=== PATIENT | female | born 1955 | race Caucasian/White ===

== ENCOUNTER 2024-09-27 02:25 | Day surgery (SDC) | payer MEDICARE, SELFPAY ==
[2024-09-20 10:45] VITALS: BMI 24.7
[2024-09-27 09:08] VITALS: BP 144/68; PULSE 88; RESP 18; TEMP 36.4; O2SAT 98; BMI 24.7
[2024-09-27] MEDS: LACTATED RINGERS 1,000 ML 150 ML IV CONT (09:20)
[2024-09-27 09:25] LABS: Glucose Point of Care 136 mg/dl (65-105)
--- NOTE | 2024-09-27 09:50 | WPDANESEPPF ---
Anes - Initial Pre Proc Eval Procedure: Operation Date: 09/27/24 10:30 Proposed Procedures p Esophagogastroduodenoscopy - Vince James MD Date/Time: 09/27/24 09:50 Surgeon: Vince James MD Pre Op Diagnosis: GERD, foreign body sensation, dysphagia Patient Data Age: 69 Gender: F Height: 1.68 m Weight: 69.6 kg Last Vital Signs Temp 36.4 C 09/27/24 09:08 Pulse 88 09/27/24 09:08 Resp 18 09/27/24 09:08 BP 144/68 H 09/27/24 09:08 Pulse Ox 98 09/27/24 09:08 O2 Del Method Room Air 09/27/24 09:08 Allergies Allergy/AdvReac Type Severity Reaction Status Date / Time hydrocodone Allergy Severe NAUSEA Verified 09/27/24 09:06 VOMITING Sulfa (Sulfonamide Allergy Mild HIVES Verified 09/27/24 09:06 Antibiotics) Home Medications ?Medication ?Instructions ?Recorded ?Confirmed ?Type cetirizine 10 mg capsule (All Day 10 mg PO DAILY PRN allergy symptoms 05/04/22 09/27/24 History Allergy (cetirizine)) cholecalciferol (vitamin D3) 50 50 mcg PO DAILY 05/04/22 09/27/24 History mcg (2,000 unit) capsule cyanocobalamin (vitamin B-12) 1,000 mcg PO DAILY 05/04/22 09/27/24 History 1,000 mcg capsule calcium polycarbophil 625 mg 1,250 mg PO BID 05/10/22 09/27/24 History tablet (FiberCon) levothyroxine 75 mcg tablet 75 mcg PO DAILY #90 tabs 12/31/23 09/27/24 Rx metformin 500 mg tablet 1,000 mg (2 x 500 mg) PO BID #360 03/25/24 09/27/24 Rx tabs atorvastatin 20 mg tablet 20 mg PO DAILY #90 tabs 04/15/24 09/27/24 Rx lansoprazole 30 mg capsule,delayed 30 mg PO DAILY #30 caps 08/28/24 09/27/24 Rx release Laboratory Tests 09/27/24 09:17 POC Capillary Glucose 136 H mg/dl (65-105) Patient hx anesthesia problems: none Family hx anesthesia problems: none Results Review: All pre-operative results and documents have been reviewed as part of the pre-operative evaluation. [facility] Past Medical History Medical History (Updated 08/28/24 @ 14:17 by Argelia Venegas APRN) Thyroid disorder GERD (gastroesophageal reflux disease) Tonsillectomy planned Diabetes Allergies Surgical History Surgical History History of tonsillectomy Hx of appendectomy Hx of cholecystectomy Hx of elbow surgery Family History Family History Father Lung cancer Other Ovarian cancer Mother Alzheimer disease Social History Social History Smoking status: Former smoker Tobacco type: cigarettes Second hand tobacco smoke exposure: No Smoking end date: 10/09/84 Alcohol intake: current Alcohol use details: social Substance use: never Substance use type: does not use Living arrangements: with family Occupation/Education: retired Gender identity (if verbalized by the patient): Female Sexual Orientation (if Verbalized by the Patient): Straight or Heterosexual Spiritual care concerns: No Anes - Eval Final PreProcedure Day of Procedure 09/27/24 09:50 Patient weight: normal Heart: regular rate and rhythm Lungs: clear to auscultation and normal air movement Airway: Mallampati scale class II Neurological: alert and oriented Last oral intake: >/= 8 hours ASA classification: III Emergent: no Anesthetic plan: proceed Anesthesia type and monitoring: general GIVS and standard monitoring Results Review: All pre-operative results and documents have been reviewed as part of the pre-operative evaluation. Informed Consent: The patient's anesthetic plan and its attendant risks and benefits were discussed with the patient/family/POA. Questions were solicited and answers provided to the satisfaction of the patient/family/POA.
--- NOTE | 2024-09-27 10:06 | WPDHPUPDATE1 ---
History and Physical Update Update Date/Time: 09/27/24 10:06 History and Physical has been reviewed, including an updated exam of the patient. There are NO changes in the patient's condition. Risks, benefits, and alternatives have been discussed and questions answered. Patient agrees to proceed with procedure.
[2024-09-27 10:20] VITALS: BP 98/48; PULSE 72; RESP 20; O2SAT 100
[2024-09-27 10:30] VITALS: BP 108/55; PULSE 68; RESP 18; O2SAT 100
[2024-09-27 10:40] VITALS: BP 115/50; PULSE 64; RESP 18; O2SAT 100
[2024-09-27 10:50] VITALS: BP 125/56; PULSE 72; RESP 18; O2SAT 100
== END 2024-09-27 11:14 | disposition home or self-care (01) ==
PROVIDERS: PCP Family Medicine Adolescent Medicine; Referring Provider Nurse Practitioner; Visit Provider Internal Medicine Gastroenterology
PROC: 0DJ08ZZ Inspection of Upper Intestinal Tract, Via Natural or Artificial Opening Endoscopic (ICD-10-PCS; CPT 43235; principal; 2024-09-27 10:30)
DX: K21.9 Gastro-esophageal reflux disease without esophagitis (principal); K31.7 Polyp of stomach and duodenum; Z87.891 Personal history of nicotine dependence; Z79.84 Long term (current) use of oral hypoglycemic drugs
CPT/HCPCS: 43239; 82948; 88305; J2003; J2704; J7120

== ENCOUNTER 2025-02-28 01:08 | Day surgery (SDC) | payer MEDICARE, SELFPAY ==
[2025-02-21 12:49] VITALS: BMI 23.1
--- OUTSIDE RECORDS SUMMARY | 2025-02-28 01:10 | XMS_ITS | Clinical Summary ---
Author Organization [facility] Address [address] [place] [address] Care Team Providers Care Club Lounge Attendant Name Role Phone Jeosph Huston MD Primary Care Prov ider Allergies Active Allergy Reactions Criticality Noted Date Comments Oxycodone Nausea & Vomiting Low 09/16/2016 Sulfa (Sulfonamide Antibiotics) Rash Medium 06/2016 Medications xwbubsky-vfq-UL -lycopen-lutein (CENTRUM SILVER) 0.4-300-250 mg-mcg-mcg tablet Take by mouth Active metFORMIN (GLUCOPHAGE) 500 mg tablet Take 1 tablet (500 mg total) by mouth 2 (two) times a day Active etodolac (LODINE) 500 mg tablet as needed 9 Active cyanocobalamin (Vitamin B-12) 1,000 mcg tablet Take 1 tablet (1,000 mcg total) by mouth Active cetirizine (ZyrTEC) 10 mg tablet Take 1 tablet (10 mg total) by mouth Active atorvastatin (LIPITOR) 20 mg tablet 9 Active alendronate (FOSAMAX) 70 mg tablet 9 Active levothyroxine (SYNTHROID) 75 mcg tablet Take 1 tablet (75 mcg total) by mouth daily 0 Active ibuprofen (ADVIL,MOTRIN) 800 mg tablet TAKE 1 TABLET BY MOUTH THREE TIMES A DAY NEEDED FOR PAIN 2 Active meloxicam (MOBIC) 15 mg tablet 2 Active lansoprazole (PREVACID) 30 mg capsule Take by mouth daily 4 Active loperamide (IMODIUM) 0.133 mg/mL solution Take by mouth 4 (four) times a day as needed for diarrhea Active fluticasone propionate (FLONASE) 50 mcg/actuation nasal spray Administer 1 spray into each nostril daily Active famotidine (PEPCID) 20 mg tabletIndicatio ns:Laryngophary ngeal reflux (LPR) Take 1 tablet (20 mg total) by mouth nightly 30 tablet 1 5 Active Active Problems Problem Noted Date Diagnosed Date Headache around the eyes 09/18/2024 Globus sensation 09/18/2024 Chronic pansinusitis 09/18/2024 Post-nasal drainage 09/18/2024 Environmental allergies 09/16/2016 Gastroesophageal reflux disease without esophagi tis 09/16/2016 Hyperlipidemia 09/16/2016 Osteopenia 09/16/2016 Overview (09/02/2020): 09/24/2019: Did not take alendronate for more than 12 weeks in 2017. Started again in 09/2018. Will have her take it for 3 years (until 09/2021. )Next DEXA due 01/2021. 01/22/2019: T=-2.0 (different machine.), Continue alendronate for 1-2 more years. Will discuss at next appointment. 10/19/16: T=-2.4, FRAX +, 22% risk of major fx, low vit D, normal Calcium. Needs to start alendronate. Thinks she might have taken Fosamax for a few years in her late 40s (menopause at 43 yo.) Type 2 diabetes mellitus without complication Encounters Date Type Department Care Team Description 01/06/2025 Telephone [facility] Otolaryngology [address] [place] [address] Valarie Jarrett LPN Refill Famotidine 20mg at HS from Last 3 Months Immunizations Immunization Administration Dates Next Due Influenza, Quad, Adjuvantate d, Intramuscular 06/20/2021 Influenza, Quadrivalent, Hig h Dose, Preservative Free, Intrr 07/10/2020 Influenza, Trivalent, IM (MDV) 07/31/2013 Influenza, Unspecified 07/09/2018,07/09/2017,10/2015 Moderna SARS-CoV-2 Monovalen t Vaccination (12+ YRS) 08/30/2021,12/18/2020,11/20/2020 Pneumococcal Conjugate PCV 13 07/09/2018 Pneumococcal Polysaccharide PPV23 08/01/2019 Tdap 2016 ZOSTER Recombinant 01/11/2019,07/23/2018, 018 Surgical History Surgery Date Site/Laterality Comments TONSILLECTOMY APPENDECTOMY CHOLECYSTECTOMY ELBOW SURGERY Right Medical History Medical History Date Comments Osteoarthritis Diabetes mellitus (HCC) Hypercholesteremia GERD (gastroesophageal reflux disease) Osteopenia Headache Tuberculosis exposure when yo [place], tested pos in 1970's, took INH for 1yr Gastric reflux Migraines Thyroid disease Sinus drainage Globus sensation Family History Medical History Relation Name Comments Cancer Father Aneurysm Maternal Grandfather Arthritis Mother Dementia Mother Cancer Mother's Sister Relation Name Status Comments Father Maternal Grandfather Mother Mother's Sister Social History Tobacco Use Types Packs/Day Years Used Date Smoking Tobacco: Former Cigarettes Q uit: 1985 Smokeless Tobacco: Never Alcohol Use Standard Drinks/Week Comments Yes 0 (1 standard drink = 0.6 oz pur e alcohol) Comments Unknown Sex and Gender Information Value Date Recorded Sex Assigned at Not on file Legal Sex Female 8:25 PM HEALTH CLUB MANAGER Gender Identity Not on file Sexual Orientation Not on file Occupation Industry Job Start Date Job End Date retired Not on file Not on file Not on file Obstetrics History Para Term AB IAB SAB Ectopic Multiple Livin g Live Births 2 1 1 1 1 1 1 Date Outcome GA Total Labor Labor/2nd/3rd Weight Sex Type Anes PTL Catherine A1 A5 Name Clin IAB 1972 Term F Living Ado pte d out Comments:Adopted out Last Filed Vital Signs Vital Sign Reading Time Taken Comments Blood Pressure 117/70 03/24/2015 1:03 PM CDT Pulse 79 03/24/2015 1:03 PM CDT Temperature 36 C (96.8 F) 04/21/2020 9:45 AM CDT Respiratory Rate 18 09/18/2024 10:25 AM HEALTH CLUB MANAGER Oxygen Saturation 98% 03/24/2015 1:03 PM CDT Inhaled Oxygen Concentration - - Weight 69.4 kg (153 lb) 09/18/2024 10:25 AM HEALTH CLUB MANAGER Height 167.6 cm (5' 6 ) 09/18/2024 10:25 AM HEALTH CLUB MANAGER Body Mass Index 24.69 09/18/2024 10:25 AM HEALTH CLUB MANAGER Plan of Treatment Health Maintenance Due Date Last Done Comments Albumin Creatinine Ratio, Urine 1953 Colon Cancer Screening-Colonoscopy 1955 Depression Screening 1953 Fall Risk Assessment 1955 Hemoglobin A1C 1953 Hepatitis C Screening 1955 eGFR 1955 Dilated Eye Exam 1955 Foot Exam 1955 Lipid Panel 1953 Hepatitis B Screening 1971 Well Visit 65+ 2018 Covid-19 Vaccine (2023- 5 season) 2024 06/30/2023, 05/10/2022, 08/30/2021, Additional history exists Breast Cancer Screening-Mammogram 10/11/2024 024, 10/11/2023 Osteoporosis Screening-Bone Density Scan 05/01/2025 05/01/2023, 05/01/2023, 04/28/2021, Additional history exists Influenza Vaccine (Season Ended) 2025 07/09/2022, 06/20/2021, 07/10/2020, Additional history exists DTaP/Tdap/Td Vaccine (2 - Td or Tdap) 01/07/2026 2016 Zoster Vaccine Completed 01/11/2019, 07/09, 07/09/2018 Pneumococcal vaccine 65+ Completed 08/01/2019, 10/2017 Insurance [facility] MEDICARE ADVANTAGE UHC MEDICARE ADVANTAGE UHC MEDICARE ADVANTAGE Advance Directives For more information, please contact: [phone] Documents on File Type Date Recorded Patient Senior Center Manager Expl anation ADVANCE DIRECTIVE 04/03/2015 12:00 AM AMADA [place] OF [employer] Care Teams Club Lounge Attendant Relationship Specialty Start Date End Date Joesph Huston MD PCP - General Family Medicine 04/23/19
--- OUTSIDE RECORDS SUMMARY | 2025-02-28 01:10 | XMS_ITS | Clinical Summary ---
Author Organization [facility] Address [address] [place] [address] Care Team Providers Care Railroad Car Loader Name Role Phone Unavailable Primary Care Provider Unavailabl e Encounters Date Type Department Care Team Description 02/26/2025 External Device Data [facility] ABSTRACTION Provider, Abstract 02/18/2025 10:15 AM CDT Ancillary Procedure [facility] [address] [place] [address] Claire Lewis MD Visit for screening mammogram from Last 3 Months Social History Tobacco Use Types Packs/Day Years Used Date Smoking Tobacco: Never Assessed Comments Unknown Sex and Gender Information Value Date Recorded Sex Assigned at Not on file Legal Sex Female 5:09 AM FOOD AND BEVERAGE ORDER CLERK Gender Identity Not on file Sexual Orientation Not on file Plan of Treatment Health Maintenance Due Date Last Done Comments DIABETES HBA1C Q 6 MONTHS 1971 DIABETES MICROALBUMIN ANNUAL SCREEN 1971 LDL CHOLESTEROL ANNUAL 1971 COLORECTAL SCREENING 1998 Colorectal Cancer Screening 1998 FIT-DNA Q 3 years 1998 FIT/FOBT Q 1 year 1998 Flex Sig/CT Colonography Q 5 years 1998 DIABETES ANNUAL FOOT EXAM 08/27/2019 08/27/2018 DIABETES ANNUAL RETINAL EXAM 09/20/2019 09/20/2018 INFLUENZA VACCINE (#1) 2024 3, 06/20/2021, 07/10/2020, Additional history exists DTAP/TDAP/TD VACCINES (2 - T d or Tdap) 01/07/2026 2016 BREAST CANCER SCREENING 02/18/2026 02/19/20, 10/11/2023, 09/30/2022, Additional history exists RSV VACCINE (60+ or ) (1 - 1-dose 75+ series) 01/09/2028 OSTEOPOROSIS SCREENING 05/01/2028 , 05/01/2023, 04/28/2021, Additional history exists ZOSTER VACCINE Completed 01/11/2019, 07/09, 07/09/2018 PNEUMOCOCCAL VACCINE 50+ YEARS Completed 08/01/2019 , 07/09/2018 Procedures Procedure Name Priority Date/Time Associated Diagnosis Comments MAMMO 3D LÓPEZ SCREEN BILAT W OR WO CAD Routine 02/18/2025 10:07 AM CDT Visit for screening mammogram from Last 3 Months Results * MAMMO 3D LÓPEZ SCREEN BILAT W OR WO CAD (02/18/2025 10:07 AM CDT) Anatomical Region Laterality Modality Breast Bilateral Mammography 02/18/2025 10:0 8 AM CDT Narrative 02/18/2025 10:18 AM CDT EXAM: MAMMO 3D LÓPEZ SCREEN BILAT W OR WO CAD DATE: 02/18/2025 HISTORY: Visit for screening mammogram COMPARISON: 10/11/2023 DENSITY: Scattered fibroglandular densities. FINDINGS: Bilateral screening mammograms with tomosynthesis were performed with standard CC and MLO views obtained. Computer assisted detection was utilized. Little significant change is noted. The parenchymal pattern is essentially unchanged. Two small nodular masses in the right subareolar breast appear unchanged. There are few benign-appearing bilateral breast calcifications noted. No new dominant mass, architectural distortion, nipple retraction, skin thickening, or suspicious calcifications are seen. ASSESSMENT: BIRADS Category 2: Benign finding(s). Digital technology was employed plus computer-aided detection software was utilized in interpretation of these images. us Claire Lewis MD MAMMO ORDERABLES Final Resul t from Last 3 Months Insurance [facility] [id number]
--- OUTSIDE RECORDS SUMMARY | 2025-02-28 01:10 | XMS_ITS | Encounter Summary ---
Author Organization [facility] Address [address] [place] [address] Care Team Providers Care Lens Molding Equipment Operator Name Role Phone Unavailable Primary Care Provider Unavailabl e Encounter Details Date Type Department Care Team (Late st Contact Info) Description 08/19/[address] [facility] Malcolm Chand MD [address] [place] [phone] Other Screening Mammogram Social History Tobacco Use Types Packs/Day Years Used Date Smoking Tobacco: Never Assessed Comments Unknown Sex and Gender Information Value Date Recorded Sex Assigned at Not on file Legal Sex Female 5:09 AM QUALITY ASSURANCE REPRESENTATIVE Gender Identity Not on file Sexual Orientation Not on file documented as of this encounter Plan of Treatment Not on file documented as of this encounter Procedures Procedure Name Priority Date/Time Associated Diagnosis Comments MAMMO SCREEN BILAT W OR WO CAD Routine 08/19/2008 3:47 PM QUALITY ASSURANCE REPRESENTATIVE documented in this encounter Results * MAMMO DIGITAL SCREEN BILAT (08/19/2008 3:47 PM QUALITY ASSURANCE REPRESENTATIVE) Anatomical Region Laterality Modality Breast Bilateral Other 08/19/2008 3:47 PM QUALITY ASSURANCE REPRESENTATIVE Narrative 08/21/2008 7:51 AM QUALITY ASSURANCE REPRESENTATIVE [address] [address] Admit Date: 08/19/2008 KATHY MATTHEWS Sex: F Admit Prov: MALCOLM CHAND Date: 1955 Primary Care Prov: JESSICA REECE CMRN: [id number] Room: [facility] SSN: [id number] IMAGING SERVICES Ordering Prov: MALCOLM CHAND Accession Number: [id number] Interpretation BILATERAL SCREENING DIGITAL MAMMOGRAMS WITH COMPUTER ASSISTED DIAGNOSIS 08/19/2008 History: Annual screening study. Comparison films are not available. The images were reviewed using the CAD system. The breast parenchyma has scattered fibroglandular densities. No new dominant masses, suspicious calcifications or areas of parenchymal asymmetry or distortion are identified. Impression: Negative screening mammogram Recommend routine followup Overall assessment: BIRADS category 1 - Negative Assessment BIRADS: 1-Negative Recommendation: Normal interval follow-up Dictated by: PEG OCHOA Electronically signed by: PEG OCHOA 08/21/2008 07:51 Transcribed: 08/20/2008 17:14 AMK Procedure Note Peg Ochoa - 08/21/2008 [facility] [address] [place], [place] [address] Admit Date: 08/19/2008 KATHY MATTHEWS Sex: F Admit Prov: MALCOLM CHAND Date: 1955 Primary Care Prov: JESSICA REECE CMRN: [id number] [id number] Ordering Prov: MALCOLM CHAND Interpretation BILATERAL SCREENING DIGITAL MAMMOGRAMS WITH COMPUTER ASSISTEDDIAGNOSIS 08/19/2008 History: Annual screening study. Comparison films are not available. The images were reviewed usingthe CAD system. The breast parenchyma has scattered fibroglandulardensities. No new dominant masses, suspicious calcifications or areas ofparenchymal asymmetry or distortion are identified. Impression: Negative screening mammogram Recommend routine followup Overall assessment: BIRADS category 1 - Negative Assessment BIRADS: 1-Negative Recommendation: Normal interval follow-up Dictated by: PEG OCHOA Electronically signed by: PEG OCHOA 08/21/2008 07:51 Transcribed: 08/20/2008 17:14 AMK us Malcolm Chand MD MAMMO ORDERABLES Final Result documented in this encounter Visit Diagnoses Diagnosis Other screening mammogram documented in this encounter
--- OUTSIDE RECORDS SUMMARY | 2025-02-28 01:10 | XMS_ITS | Clinical Summary ---
Author Organization [facility] Care Team Providers Care Ribbon Winder Name Role Phone Unavailable Primary Care Provider Unavailabl e Social History Tobacco Use Types Packs/Day Years Used Date Smoking Tobacco: Never Assessed Comments Unknown Sex and Gender Information Value Date Recorded Sex Assigned at Not on file Legal Sex Female 3:21 PM CDT Gender Identity Not on file Sexual Orientation Not on file Plan of Treatment Health Maintenance Due Date Last Done Comments DEXA Bone Density 1955 Hepatitis C Virus (HCV) Screening 1955 TdaP Immunization 1955 Colonoscopy 1998 Colorectal Cancer Screening 1998 Cologuard 2003 Immunochemical Fecal Occult Blood 2003 Mammogram 2003 Pneumococcal Immunization (5 0+ years) (1 of 1 - PCV) 2003 Zoster Immunization (1 of 2) 2003 Influenza Immunization (#1) 2024 SARS-COV-2 Immunization ( - 2023- season) 2024 Respiratory Syncytial Virus (RSV) Immunization (Adult) (1 - 1-dose 75+ series) 01/09/2028 Hepatitis B Immunization Aged Out No longer eligible based on patient's age to complete this topic Meningococcal Immunization (ACWY) Aged Out No longer eligible based on patient's age to complete this topic Rotavirus Immunization Aged Out No lo nger eligible based on patient's age to complete this topic
--- OUTSIDE RECORDS SUMMARY | 2025-02-28 01:10 | XMS_ITS | Referral Summary ---
Author Organization [facility] Address [address] [place] [address] Care Team Providers Care Sales Consultant Name Role Phone Joesph Huston MD Primary Care Prov ider Encounters Date Type Department Care Team Description 01/06/2025 Telephone [facility] Otolaryngology [address] [place] [address] Valarie Jarrett LPN Refill Famotidine 20mg at HS from Last 3 Months Allergies Active Allergy Reactions Criticality Noted Date Comments Oxycodone Nausea & Vomiting Low 09/16/2016 Sulfa (Sulfonamide Antibiotics) Rash Medium 06/2016 Medications yuazicat-utq-ZE -lycopen-lutein (CENTRUM SILVER) 0.4-300-250 mg-mcg-mcg tablet Take [...] yo.) Type 2 diabetes mellitus without complication Immunizations Immunization Administration Dates Next Due Influenza, Quad, Adjuvantate d, Intramuscular 06/20/2021 Influenza, Quadrivalent, Hig h Dose, Preservative Free, Intrr 07/10/2020 Influenza, Trivalent, IM (MDV) 07/31/2013 Influenza, Unspecified 07/09/2018,07/09/2017,10/2015 Moderna SARS-CoV-2 Monovalen t Vaccination (12+ YRS) 08/30/2021,12/18/2020,11/20/2020 Pneumococcal Conjugate PCV 13 07/09/2018 Pneumococcal Polysaccharide PPV23 08/01/2019 Tdap 2016 ZOSTER Recombinant 01/11/2019,07/23/2018, 018 Social History Tobacco Use Types Packs/Day Years Used Date Smoking Tobacco: Former Cigarettes Q uit: 1985 Smokeless Tobacco: Never Alcohol Use Standard Drinks/Week Comments Yes 0 (1 standard drink = 0.6 oz pur e alcohol) Comments Unknown Sex and Gender Information Value Date Recorded Sex Assigned at Not on file Legal Sex Female 8:25 PM PHOTOGRAPHIC HAND DEVELOPER Gender Identity Not on file Sexual Orientation Not on file Occupation Industry Job Start Date Job End Date retired Not on file Not on file Not on file Last Filed Vital Signs Vital Sign Reading Time Taken Comments Blood Pressure 117/70 03/24/2015 1:03 PM CDT Pulse 79 03/24/2015 1:03 PM CDT Temperature 36 C (96.8 F) 04/21/2020 9:45 AM CDT Respiratory Rate 18 09/18/2024 10:25 AM PHOTOGRAPHIC HAND DEVELOPER Oxygen Saturation 98% 03/24/2015 1:03 PM CDT Inhaled Oxygen Concentration - - Weight 69.4 kg (153 lb) 09/18/2024 10:25 AM PHOTOGRAPHIC HAND DEVELOPER Height 167.6 cm (5' 6 ) 09/18/2024 10:25 AM PHOTOGRAPHIC HAND DEVELOPER Body Mass Index 24.69 09/18/2024 10:25 AM PHOTOGRAPHIC HAND DEVELOPER Plan of Treatment Not on file Insurance [facility] MEDICARE ADVANTAGE UHC MEDICARE ADVANTAGE UHC MEDICARE ADVANTAGE Advance Directives For more information, please contact: [phone] Documents on File Type Date Recorded Patient Psychiatric Attendant Expl anation ADVANCE DIRECTIVE 04/03/2015 12:00 AM AMADA [place] OF [employer]MED[employer] Care Teams Sales Consultant Relationship Specialty Start Date End Date Joesph Huston MD PCP - General Family Medicine 04/23/19
--- OUTSIDE RECORDS SUMMARY | 2025-02-28 01:10 | XMS_ITS | Encounter Summary ---
Author Organization [facility] Address [address] [place] [address] Care Team Providers Care Clinical Ob Name Role Phone Joesph Huston MD Primary Care Provider + Armando Horn MD Unavailable [phone] Claire Lewis MD Unavailable [phone] Alyssa Mcgarry MD Primary Care Provider Encounter Details Date Type Department Care Team (Late st Contact Info) Description 02/18/2025 Results Follow-Up [facility] [address] [place] [address] Claire Lewis MD [address] [facility] [address] [id number] Social History Tobacco Use Types Packs/Day Years Used Date Smoking Tobacco: Former Cigarettes Q uit: 1985 Smokeless Tobacco: Never Alcohol Use Standard Drinks/Week Comments Yes 2 (1 standard drink = 0.6 oz pur e alcohol) AUDIT-C Answer Date Recorded Q1: How often do you have a drink containing alc ohol? 2-4 times a month 09/22/2020 Average Number of Drinks Not on file 020 Q3: How often do you have si x or more drinks on one occasion? 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 Question Answer Date of Assessment Author Little interest or pleasure in doing things Not at all 02/19/2025 9:31 AM Sravani Givens M A Feeling down, depressed, or hopeless Not at all 02/19/2025 9:31 AM Sravani Givens M A Patient Health Questionnaire -2 Score 0 02/19/2025 9:31 AM Sravani Givens M A * Over the last 2 weeks, how often have you been bothered by any of the following problems? Question Answer Date of Assessment Author Feeling nervous, anxious, or on edge 0 02/06 9:31 AM Sravani Givens MA Not being able to stop or co ntrol worrying 0 02/19/2025 9:31 AM Sravani Givens M A Worrying too much about diff erent things 0 02/19/2025 9:31 AM Sravani Givens M A Trouble relaxing 0 02/19/2025 9:31 AM Sravani Bunn MA Being so restless that it is hard to sit still 0 02/19/2025 9:31 AM Sravani Givens M A Becoming easily annoyed or irritable 0 02/06 9:31 AM Sravani Givens MA Feeling afraid as if somethi ng awful might happen 0 02/19/2025 9:31 AM Sravani Givens M A CHRISTIANO-7 Total Score 0 02/19/2025 9:31 AM Sravani Givens MA documented as of this encounter Plan of Treatment Upcoming Encounters Date Type Department Care Team (Late st Contact Info) Description 03/05/2025 11:45 AM CDT 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 [facility] - 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 [address] [facility], [address] [place] [address] Claire Lewis MD [address] [place] [address] [address] 03/05/2025 2:30 PM CDT Appointment [facility] - Diabetes Education [address] [place] [address] 03/19/2025 11:00 AM CDT Appointment [facility] CLIN NUTRITION [address] [place] [address] 03/26/2025 9:40 AM CDT 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 [facility] - Family Medicine [address] [phone] Alyssa Mcgarry MD [address] [place] [address] documented as of this encounter Visit Diagnoses Not on filedocumented in this encounter Care Teams Clinical Ob Relationship Specialty Start Date End Date Joesph Huston MD [address] [place] [address] [address] [place] [address] PCP - General Family Medicine 09/16/16 02/18/25 Alyssa Mcgarry MD [address] [place] [address] PCP - General Internal Medicine 02/19/25 Armando Horn MD [address] [facility] [address] [place] [address] Qa Tester Gastroenterology 09/16/16 Claire Lewis MD [address] [place] [address]. [address] [place] [phone] Obstetrics and Gynecology 10/18/22 documented as of this encounter
--- OUTSIDE RECORDS SUMMARY | 2025-02-28 01:11 | XMS_ITS | Encounter Summary ---
Author Organization [facility] Address [address] [facility] [place] [address] Care Team Providers Care Beamster Name Role Phone Armando Horn MD Unavailable [phone] Claire Lewis MD Unavailable [phone] Alyssa Mcgarry MD Primary Care Provider Encounter Details Date Type Department Care Team (Late st Contact Info) Description 02/27/2025 Results Follow-Up [facility] - Family Medicine [address] [phone] Alyssa Mcgarry MD [address] [place] [address] Social History Tobacco Use Types Packs/Day Years Used Date Smoking Tobacco: Former Cigarettes Q uit: 1985 Smokeless Tobacco: Never Alcohol Use Standard Drinks/Week Comments Yes 1 (1 standard drink = 0.6 oz pur [...] on file Legal Sex Female 6:17 AM 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 RN Gender Identity Female 08/24/2021 9:08 AM NICU RN Sexual Orientation Not on file Occupation Industry Job Start Date Job End Date 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, 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 Not on file Not on file Not on file (completey retired.) Not on file Not on file Not on file documented as of this encounter Progress Notes * Alyssa Mcgarry MD - 02/27/2025 11:55 AM CDT Please review laboratory tests on MyChart TSH 0.377 suppressed , free T4 1.38, decrease levothyroxine from 75 mcg daily to 50 mcg daily, recheck laboratory tests: TSH and free T4 in 6 weeks Dx : Hypothyroidism documented in this encounter Plan of Treatment Upcoming Encounters Date Type Department Care Team (Late st Contact Info) Description 03/05/2025 11:45 AM CDT 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 [facility] - HEAD BUYER TOBACCO [address] [place] [address], [address] [place] [phone] Claire Lewis MD [address] [place] [address] [address] 03/05/2025 2:30 PM CDT Appointment [facility] - Diabetes Education [address] [place] [address] 03/19/2025 11:00 AM CDT Appointment [facility] CLIN NUTRITION [address] [place] [address] 03/26/2025 9:40 AM CDT 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 [facility] - Family Medicine [address] [place] [address], [place] [phone] Alyssa cMgarry MD [address] [place], [place] [phone] Scheduled Orders Name Type Priority Associated Diagnoses Orde r Schedule T4 FREE Lab Routine Acquired hypothyroidism Ordered: 02/27/2025 TSH Lab Routine Acquired hypothyroidism Ordered: 02/27/2025 documented as of this encounter Visit Diagnoses Diagnosis Acquired hypothyroidism- Primary documented in this encounter Care Teams Beamster Relationship Specialty Start Date End Date Alyssa Mcgarry MD [address] [place] [address] PCP - General Internal Medicine 02/19/25 Armando Horn MD [address] [facility] [address] [place], [place] [phone] Tribunal Member Gastroenterology 09/16/16 Claire Lewis MD [facility] [address] . [address] [place] [phone] Obstetrics and Gynecology 10/18/22 documented as of this encounter
--- OUTSIDE RECORDS SUMMARY | 2025-02-28 01:11 | XMS_ITS | Encounter Summary ---
Author Organization [facility] Address 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
--- OUTSIDE RECORDS SUMMARY | 2025-02-28 01:11 | XMS_ITS | Clinical Summary ---
Author Organization [facility] Address [address] [place] [address] Care Team Providers Care Speeder Worker Name Role Phone Armando Horn MD Unavailable [phone] Claire Lewis MD Unavailable [phone] Alyssa Mcgarry MD Primary Care Provider Source Comments [facility],non-owned Affiliates and Associated Physician Practices is amultiple site organization consisting of ambulatory clinics and hospital sitesin [place], [place], [place] and [place]. This disclosure is being madepursuant to the Care Everywhere program and may not contain all information available regarding this patient. Last updated 18.[facility] Allergies Active Allergy Reactions Criticality Noted Date Comments Amoxicillin Diarrhea 10/14/2022 Oxycodone Nausea and/or Vomiting 09/16/2016 Sulfa Drugs Rash Medium 09/16/2016 Medications * Be aware that medications may not be up to date on this document. Alwaysverify current medications with the patient. atorvastatin (LIPITOR) 20 MG tablet Take 1 (one) tablet by mouth at bedtime Active omeprazole (PRILOSEC) 40 MG capsule Take 1 (one) capsule by mouth daily before breakfast Active cetirizine (ZYRTEC ALLERGY) 10 MG tablet Take 1 (one) tablet by mouth once daily Active cyanocobalamin (VITAMIN B-12) 1000 MCG tablet Take 1 (one) tablet by mouth once daily Active calcium polycarbophil (FiberCon) 625 MG tablet Take by mouth at bedtime Active fluticasone propionate (Flonase) 50 MCG/ACT nasal spray Milfay 1 (one) spray into the nose once daily Active famotidine (Pepcid) 20 MG tablet Take 1 (one) tablet by mouth at bedtime 5 Active lansoprazole (Prevacid) 30 MG capsule Take by mouth once daily 4 Active dicyclomine (Bentyl) 20 MG tablet TAKE 1 TABLET BY MOUTH THREE TIMES DAILY NEEDED FOR ABDOMINAL CRAMPS 5 Active metFORMIN (Glucophage) 500 MG tablet Take 2 (two) tablets by mouth 2 times daily with morning and evening meal 5 Active guaiFENesin ER 12hr (Mucinex) 600 MG tablet Take 1 (one) tablet by mouth once daily as needed for Cough Active levothyroxine (Synthroid) 50 MCG tablet Take 1 (one) tablet by mouth once daily 90 tablet 4 5 Active levothyroxine (Synthroid) 75 MCG tablet Take 1 (one) tablet by mouth once daily 4 025 Discontin ued(Dose Adjustmen t) metFORMIN (Glucophage) 1000 MG tablet Take 1 (one) tablet by mouth 2 times daily with morning and evening meal 4 025 Discontin ued(Dose Adjustmen t) Active Problems Problem Noted Date Diagnosed Date Post-nasal drainage 09/18/2024 Globus sensation 09/18/2024 Chronic pansinusitis 09/18/2024 Primary hypothyroidism 12/16/2020 Overview (02/18/2025): Note: Unchanged Type 2 diabetes mellitus with hyperglycemia 01/2019 Overview (02/18/2025): Note: Unchanged Generalized osteoarthritis 11/12/2018 Overview (02/18/2025): Note: Unchanged Allergic rhinitis due to pollen 11/12/2018 Overview (02/18/2025): Note: Unchanged Vitamin D deficiency 12/19/2016 Overview (02/18/2025): Note: Unchanged Hyperlipidemia 09/16/2016 Type 2 diabetes mellitus without complication Gastroesophageal reflux disease without esophagi tis 09/16/2016 Environmental allergies 09/16/2016 Osteopenia 09/16/2016 Overview (05/05/2023): 05/05/2023: T=-2.2. FRAX negative. Repeat DEXA in 2 years. 05/06/2021: T=-2.1. Continue alendronate until 09/2021. Repeat DEXA in 04/2023. 09/24/2019: Did not take alendronate for more than 12 weeks in 2016. Started again in 09/2018. Will have her [...] her late 40s (menopause at 43 yo.) Encounters Date Type Department Care Team Description 02/27/2025 Results Follow-Up [facility] [address] [place] [address] Alyssa Mcgarry MD 02/19/2025 9:40 AM CDT 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 [facility] [address] [place] [phone] Alyssa Mcgarry MD Type 2 diabetes mellitus without complication, unspecified whether longterm insulin use (HCC) (Primary Dx); Vitamin D deficiency; Hyperlipidemia, unspecified hyperlipidemia type; Acquired hypothyroidism; Gastroesophageal reflux disease without esophagitis; Dizziness 02/19/2025 Telephone [facility] Medicine [address] [place] [phone] Sravani Hill MA General (Colonoscopy request from [facility] medical records department) 02/19/2025 Travel 02/18/2025 Results Follow-Up [facility] [address] [place] [address] Claire Lewis MD from Last 3 Months Immunizations Immunization Administration Dates Next Due INFLUENZA VACCINE, TRIV. (AF LURIA, FLUZONE TRIVALENT; 6MO+) (IIV3) 07/31/2013 Covid Moderna primary monova lent 12+ yr 0.5mL 08/30/2021,12/18/2020,11/20/2020 Covid Pfizer primary monoval ent 12+ yr 0.3mL Purple cap 06/30/2023 INFLUENZA VACCINE 07/09/2022, 8,07/09/2017,2015 INFLUENZA VACCINE, ADJUVANTE D, QUADR. (FLUAD QUADRIVALENT; 65Y+) (AIIV4) 06/30/2023,06/20/2021 INFLUENZA VACCINE, HIGH-DOSE , QUADR. (FLUZONE HIGH-DOSE QUADRIVALENT; 65Y+), 0.7 ML (HD-IIV4) 07/10/2020 PNEUMOCOCCAL PPSV23 08/01/2019 Pneumococcal Pcv13 Conj 07/09/2018 TDAP (7yrs+) 2016 Zoster Hzv Vacc Recombinant Inj Im 01/11/2019, Family History Medical History Relation Name Comments Alcohol abuse Father Lung Cancer Father Cancer - Ovarian Maternal Aunt Alzheimer's Disease Mother Cancer - Ovarian Mother Osteoporosis Mother had hip fractur e Alcohol abuse Sister 1 Hyperlipidemia Sister 1 Hypertension Sister 1 Alcohol abuse Sister 2 Relation Name Status Comments Brother 1 Alive Brother 2 Alive Brother 3 Alive Brother 4 Alive Father Maternal Aunt Mother Sister 1 Alive Sister 2 Alive Social History Tobacco Use Types Packs/Day Years Used Date Smoking Tobacco: Former Cigarettes Q uit: 1985 Smokeless Tobacco: Never Tobacco Cessation:Counseling Given: No Alcohol Use Standard Drinks/Week Comments Yes 1 [...] on file Legal Sex Female 6:17 AM PLASTER PATTERNMAKER Gender Identity Female 08/24/2021 9:08 AM PLASTER PATTERNMAKER Sexual Orientation Not on file Occupation Industry Job Start Date Job End Date 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, 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 Not on file Not on file Not on file (completey retired.) Not on file Not on file Not on file Last Filed Vital Signs Vital Sign Reading Time Taken Comments Blood Pressure 119/71 02/19/2025 9:32 AM CDT Pulse 70 02/19/2025 9:32 AM CDT Temperature 36.3 C (97.4 F) 02/19/2025 9:32 AM CDT Respiratory Rate - - Oxygen Saturation 97% 02/19/2025 9:32 AM CDT Inhaled Oxygen Concentration - - Weight 67.5 kg (148 lb 12.8 oz) 02/19/2025 9:32 AM CDT Height 167.6 cm (5' 6 ) 02/19/2025 9:32 AM CDT Body Mass Index 24.02 02/19/2025 9:32 AM CDT Plan of Treatment Upcoming Encounters Date Type Department Care Team (Late st Contact Info) Description 03/05/2025 11:45 AM CDT 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 [facility] - GYM TE[facility]ER [address] [place] [address], [address] [place] [phone] Claire Lewis MD [address] [facility] [address] [place] [id number] 03/05/2025 2:30 PM CDT Appointment [facility] - Diabetes Education [address] [place] [address] 03/19/2025 11:00 AM CDT Appointment [facility] CLIN NUTRITION [address] [place] [address] 03/26/2025 9:40 AM CDT 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 [facility] - Family Medicine [address], [address] [phone] Alyssa Mcgarry MD [address] [place] [address] Health Maintenance Due Date Last Done Comments COLOGUARD (AGES 45-75) - COLON CA SCREENING 1955 CT COLONOGRAPHY - COLON CA SCREENING 1955 FIT - COLON CA SCREENING 1955 FLEX SIG - COLON CA SCREENING 1955 HEPATITIS C SCREENING 01/04/1971 COVID-19 VACCINE ( season) 2024 06/30/2023, 08/30/2021, 12/18/2020, Additional history exists DIABETES - URINE PROTEIN SCREENING 10/09/2024 10/17/2018 (Done Outside Per Patient) MEDICARE AWV CALENDAR YEAR 2024 COLON MONITORING 12/29/2024 12/29/2014 COLONOSCOPY - COLON CA SCREENING 12/29/2024 12/29/2014, 10/09/2014 Colorectal Cancer Screening 12/29/2024 BONE DENSITY TESTING 05/01/2025 05/01/2023, 04/28/2021, 01/22/2019, Additional history exists INFLUENZA VACCINE (Season Ended) 2025 06/30/2023, 07/09/2022, 06/20/2021, Additional history exists DIABETES-HGB A1C 08/22/2025 02/19/2025, 06/2019 (Done Outside Per Patient) DTAP/TDAP/TD VACCINES (2 - Td or Tdap) 01/07/2026 2016 MAMMOGRAM 02/18/2026 02/18/2025, 02/06, 02/18/2025, Additional history exists DIABETES-FOOT EXAM WITH MONOFILAMENT 02/19/2026 02/19/2025, 08/27/2018 (Done Outside Per Patient) DIABETES-SERUM CREATININE 02/26/20262024, 11/14/2024 (Done Outside Per Report), 11/09/2016 DIABETES RETINOPATHY SCREENING 02/20/2027 02/20/2025, 09/20/2018 (Done Outside Per Patient) Respiratory Syncytial Virus (RSV) Vaccine Pt: or over 60 yrs (1 - 1-dose 75+ series) 01/09/2028 ZOSTER VACCINE Completed 01/11/2019, 07/23/2018 PNEUMOCOCCAL VACCINE 50+ Completed 08/01/2019, 10/2017 DEPRESSION SCREENING Completed 02/19/2025, 02/23/2024, 10/18/2022 HEPATITIS B VACCINE Aged Out No longe r eligible based on patient's age to complete this topic HIB VACCINE Aged Out No longer eligi ble based on patient's age to complete this topic HPV VACCINE Aged Out No longer eligi ble based on patient's age to complete this topic MENINGOCOCCAL (Group B) VACCINE SHARED DECISION-MAKING Aged Out No longer eligible based on patient's age to complete this topic MENINGOCOCCAL GROUPS A/C/Y/W VACCINE Aged Out No longer eligible based on patient's age to complete this topic Procedures Procedure Name Priority Date/Time Associated Diagnosis Comments VITAMIN D 25-HYDROXY Routine 02/26/2025 1:53 PM CDT Vitamin D deficiency TSH Routine 02/26/2025 1:53 PM CDT Acquired hypothyroidism T4 FREE Routine 02/26/2025 1:53 PM CDT Acquired hypothyroidism COMPREHENSIVE METABOLIC PANEL Routine 02/26/2025 1:53 PM CDT Dizziness CBC W AUTO DIFFERENTIAL Routine 02/26/2025 1:53 PM CDT Dizziness EYE EXAM 02/20/2025 HEMOGLOBIN A1C - POINT OF CARE (AMB) Routine 02/19/2025 Type 2 diabetes mellitus without complication, unspecified whether longterm insulin use (HCC) MAMMOGRAM 02/18/2025 DEXA BONE DENSITY AXIAL SKELETON Routine 05/01/2023 9:53 AM CDT Age-related osteoporosis without current pathological fracture COLONOSCOPY 12/29/2014 from Last 3 Months or Most Recently Relevant to Health Maintenance Results * VITAMIN D 25-HYDROXY (02/26/2025 1:53 PM CDT) Vitamin D, 25 Hydroxy 45.9 30.0 - 100.0 ng/mL [facility] INSURANCE BILL Comment: Vitamin D deficiency has been defined by the [place] of Medicine and an Endocrine Society practice guideline as a level of serum 25-OH vitamin D less than 20 ng/mL (1,2). The Endocrine Society went on to further define vitamin D insufficiency as a level between 21 and 29 ng/mL (2). 1. IOM ([place] of Medicine). 2010. Dietary reference intakes for calcium and D. [place]: The National Academies Press. 2. Latisha MF, Evonne ALLEN, Lori BROWNE, et al. Evaluation, treatment, and prevention of vitamin D deficiency: an Endocrine Society clinical practice guideline. JCEM. 2010; 96(7):1911-30. Blood BLOOD SPECIMEN / Unknown 02/26/2025 1:53 PM CDT 02/26/2025 Narrative [facility] INSURANCE BILL - 02/27/2025 7:09 AM CDT Performed at: - [address] [id number] Heater Operator: Ishmael Ulloa PhD, Phone: [phone] us Alyssa Mcgarry MD LAB - CHEMISTRY ORDERAB LES Final Result [facility] INSURANCE BILL [address] [place] [address] * (ABNORMAL) CBC WITH DIFFERENTIAL (02/26/2025 1:53 PM CDT) WBC 9.3 3.4 - 10.8 x10E3/uL [facility] INSURANCE BILL RBC 4.10 3.77 - 5.28 x10E6/uL [facility] INSURANCE BILL Hemoglobin 12.3 11.1 - 15.9 g/dL [facility] INSURANCE BILL Hematocrit 39.4 34.0 - 46.6 % [facility] INSURANCE BILL MCV 96 79 - 97 fL [facility] INSURANCE BILL MCH 30.0 26.6 - 33.0 pg [facility] INSURANCE BILL MCHC 31.2(L) 31.5 - 35.7 g/dL [facility] INSURANCE BILL RDW 12.4 11.7 - 15.4 % [facility] INSURANCE BILL Platelet Count 326 150 - 450 x10E3/uL [facility] INSURANCE BILL Granulocytes % 58 Not Estab. % [facility] INSURANCE BILL Lymphocytes % 29 Not Estab. % [facility] INSURANCE BILL Monocytes % 10 Not Estab. % [facility] INSURANCE BILL Eosinophils % 2 Not Estab. % [facility] INSURANCE BILL Basophils % 1 Not Estab. % [facility] INSURANCE BILL Granulocytes Absolute 5.4 1.4 - 7.0 x10E3/uL [facility] INSURANCE BILL Lymphocytes Absolute 2.7 0.7 - 3.1 x10E3/uL [facility] INSURANCE BILL Monocytes Absolute 0.9 0.1 - 0.9 x10E3/uL [facility] INSURANCE BILL Eosinophils Absolute 0.2 0.0 - 0.4 x10E3/uL [facility] INSURANCE BILL Basophils Absolute 0.1 0.0 - 0.2 x10E3/uL [facility] INSURANCE BILL Immature Granulocytes 0 Not Estab. % [facility] INSURANCE BILL Immature Granulocytes Absolute 0.0 0.0 - 0.1 x10E3/uL [facility] INSURANCE BILL Blood BLOOD SPECIMEN / Unknown 02/26/2025 1:53 PM CDT 02/26/2025 Narrative [facility] INSURANCE BILL - 02/27/2025 7:09 AM CDT Performed at: [address] [id number] Heater Operator: Ishmael Ulloa PhD, Phone: [phone] us Alyssa Mcgarry MD LAB - HEMATOLOGY ORDERA BLES Final Result [facility] INSURANCE BILL [address] [place] [address] * (ABNORMAL) COMPREHENSIVE METABOLIC PANEL (02/26/2025 1:53 PM CDT) [facility] Glucose 102(H) 70 - 99 mg/dL [facility] INSURANCE BILL BUN 18 8 - 27 mg/dL [facility] INSURANCE BILL Creatinine 0.72 0.57 - 1.00 mg/dL [facility] INSURANCE BILL eGFR by CKD-EPI 89 >59 mL/min/1.7 3 [facility] INSURANCE BILL BUN/Creatinine Ratio 25 12 - 28 [facility] INSURANCE BILL Sodium 140 134 - 144 mmol/L [facility] INSURANCE BILL Potassium 4.4 3.5 - 5.2 mmol/L [facility] INSURANCE BILL Chloride 100 96 - 106 mmol/L [facility] INSURANCE BILL CO2 23 20 - 29 mmol/L [facility] INSURANCE BILL Calcium 9.7 8.7 - 10.3 mg/dL [facility] INSURANCE BILL Protein Total 6.7 6.0 - 8.5 g/dL [facility] INSURANCE BILL Albumin 4.4 3.8 - 4.8 g/dL [facility] INSURANCE BILL Globulin Total 2.3 1.5 - 4.5 g/dL [facility] INSURANCE BILL Bilirubin Total 0.3 0.0 - 1.2 mg/dL [facility] INSURANCE BILL Alkaline Phosphatase 69 44 - 121 IU/L [facility] INSURANCE BILL AST 19 0 - 40 IU/L [facility] INSURANCE BILL ALT 11 0 - 32 IU/L [facility] INSURANCE BILL Blood BLOOD SPECIMEN / Unknown 02/26/2025 1:53 PM CDT 02/26/2025 Narrative [facility] INSURANCE BILL - 02/27/2025 8:11 AM CDT Performed at: [address] [place] [id number] Heater Operator: Ishmael Ulloa PhD, Phone: [phone] us Alyssa Mcgarry MD LAB - CHEMISTRY ORDERAB LES Final Result [facility] INSURANCE BILL [address] [place] [address] * (ABNORMAL) TSH (02/26/2025 1:53 PM CDT) [facility] TSH 0.377(L) 0.450 - 4.500 uIU/mL [facility] INSURANCE BILL Blood BLOOD SPECIMEN / Unknown 02/26/2025 1:53 PM CDT 02/26/2025 Narrative [facility] INSURANCE BILL - 02/27/2025 9:11 AM CDT Performed at: [address] [id number] Heater Operator: Ishmael Ulloa PhD, Phone: [phone] Alyssa Mcgarry MD LAB - CHEMISTRY ORDERAB LES Final Result Performing Organization Address [facility] Co de Phone Number [facility] B[facility] [address] [place] [phone] * T4 FREE (02/26/2025 1:53 PM CDT) Pathologist [facility] T4 Free 1.38 0.82 - 1.77 ng/dL [facility] INSURANCE BILL Blood BLOOD SPECIMEN / Unknown 02/26/2025 1:53 PM CDT 02/26/2025 Narrative [facility] INSURANCE BILL - 02/27/2025 10:10 AM CDT Performed at: [address] [id number] Heater Operator: Ishmael Ulloa PhD, Phone: [phone] Alyssa Mcgarry MD LAB - CHEMISTRY ORDERAB LES Final Result Performing Organization Address [facility] de Phone Number [facility] INSURANCE BILL [address] [place] [address] * EYE EXAM (02/20/2025) Anatomical Region Laterality Modality Other 02/20/2025 Narrative 02/20/2025 Ordered by an unspecified provider. us Scanned Document SCANNING ONLY Final Result * HEMOGLOBIN A1C - POINT OF CARE (AMB) (02/19/2025) Pathologist [facility] Hemoglobin A1c POCT 7.2 % Expiration Date 08/27/2026 Lot # [id number] QC Verified Yes Yes Blood BLOOD SPECIMEN / Unknown 02/19/2025 us Alyssa Mcgarry MD LAB - POINT OF CARE ORD ERABLES Final Result * MAMMOGRAM (02/18/2025) Anatomical Region Laterality Modality Other 02/18/2025 Narrative 02/18/2025 Ordered by an unspecified provider. us Scanned Document SCANNING ONLY Final Result * DEXA BONE DENSITY AXIAL SKELETON (05/01/2023 9:53 AM CDT) Anatomical Region Laterality Modality Nuclear Medicine 05/01/2023 10:4 3 AM CDT Impressions 05/01/2023 10:44 AM CDT IMPRESSION: WHO category: Osteopenia WORLD HEALTH ORGANIZATION DEFINITIONS NORMAL= T-Score at or above -1.0 SD OSTEOPENIA = T-Score between -1 and -2.5 SD OSTEOPOROSIS = T-Score at or below -2.5 SD > Interpreting Provider: Neli Snyder DO on 05/01/2023 10:44 AM Narrative 05/01/2023 10:44 AM CDT BONE MINERAL DENSITY STUDY: INDICATION: 68-year-old for osteoporosis screening. COMPARISON: DEXA dated 04/28/2021 FINDINGS: The mean bone mineral content of the lumbar spine is 1.349 g/cm2 and T-score is 1.4. The mean bone mineral content of the left femoral neck is 0.778 g/cm2 and T-score is -1.9. The mean bone mineral content of the left total hip is 0.868 g/cm2 and T-score is -1.1. The mean bone mineral content of the right femoral neck is 0.736 g/cm2 and T-score is -2.2. The mean bone mineral content of the right total hip is 0.832 g/cm2 and T-score is -1.4. FRAX 10 year fracture risk Major osteoporotic fracture: 13.0% Hip fracture: 2.9% Procedure Note Neli Snyder DO - 05/01/2023 BONE MINERAL DENSITY STUDY: INDICATION: 68-year-old for osteoporosis screening. COMPARISON: DEXA dated 04/28/2021 FINDINGS: The mean bone mineral content of the lumbar spine is 1.349 g/cm2 and T-score is 1.4. The mean bone mineral content of the left femoral neck is 0.778 g/cm2and T-score is -1.9. The mean bone mineral content of the left total hip is 0.868 g/cm2 and T-score is -1.1. The mean bone mineral content of the right femoral neck is 0.736 g/cm2and T-score is -2.2. The mean bone mineral content of the right total hip is 0.832 g/cm2 and T-score is -1.4. FRAX 10 year fracture risk Major osteoporotic fracture: 13.0% Hip fracture: 2.9% IMPRESSION: WHO category: Osteopenia WORLD HEALTH ORGANIZATION DEFINITIONS NORMAL= T-Score at or above -1.0 SD OSTEOPENIA = T-Score between -1 and -2.5 SD OSTEOPOROSIS = T-Score at or below -2.5 SD > Interpreting Provider: Neli Snyder DO on 05/01/2023 10:44 AM us Claire Lewis MD DEXA ORDERABLES Final Result * COLONOSCOPY (12/29/2014) 12/29/2014 Narrative 12/29/2014 Ordered by an unspecified provider. us Scanned Document SCANNING ONLY Final Result from Last 3 Months or Most Recently Relevant to Health Maintenance Insurance [facility] MANAGED MEDICARE ADV [facility] MANAGED MEDICARE ADV [facility] Care Teams Speeder Worker Relationship Specialty Start Date End Date Alyssa Mcgarry MD [address] [place] [address] PCP - General Internal Medicine 02/19/25 Armando Horn MD [address] [facility] [address] [place] [address] [facility] Gastroenterology 09/16/16 Claire Lewis MD [facility] [address] [place] [phone] Obstetrics and Gynecology 10/18/22
[2025-02-28 08:42] VITALS: BP 151/69; PULSE 90; RESP 16; TEMP 36.3; O2SAT 98; BMI 22.7
[2025-02-28] MEDS: LACTATED RINGERS 1,000 ML 150 ML IV CONT (08:56)
[2025-02-28 08:58] LABS: Glucose Point of Care 154 mg/dl (65-105)
--- NOTE | 2025-02-28 09:51 | P.PNAN_ITS ---
Anes - Initial Pre Proc Eval Procedure: Operation Date: 02/28/25 10:00 Proposed Procedures p Screening Colonoscopy - Paul Mayorga MD Date/Time: 02/28/25 09:51 Surgeon: Paul Mayorga MD Pre Op Diagnosis: Screening colon Patient Data Age: 70 Gender: F Height: 1.68 m Weight: 64 kg Last Vital Signs Temp 36.3 C L 02/28/25 08:42 Pulse 90 02/28/25 08:42 Resp 16 02/28/25 08:42 BP 151/69 H 02/28/25 08:42 Pulse Ox 98 02/28/25 08:42 O2 Del Method Room Air 02/28/25 08:42 Allergies Allergy/AdvReac Type Severity Reaction Status Date / Time hydrocodone Allergy Severe NAUSEA Verified 02/28/25 08:39 VOMITING Sulfa (Sulfonamide Allergy Mild HIVES Verified 02/28/25 08:39 Antibiotics) amoxicillin AdvReac unknown Verified 02/28/25 08:39 Home Medications ?Medication ?Instructions ?Recorded ?Confirmed ?Type cholecalciferol (vitamin D3) 50 50 mcg PO DAILY 05/04/22 02/28/25 History mcg (2,000 unit) capsule cyanocobalamin (vitamin B-12) 1,000 mcg PO DAILY 05/04/22 02/28/25 History 1,000 mcg capsule calcium polycarbophil 625 mg 1,250 mg PO BID 05/10/22 02/28/25 History tablet (FiberCon) lansoprazole 30 mg capsule,delayed 30 mg PO DAILY #90 caps 10/04/24 02/28/25 Rx release atorvastatin 20 mg tablet 20 mg PO DAILY #90 tabs 11/01/24 02/28/25 Rx levothyroxine 75 mcg tablet 75 mcg PO DAILY #90 tabs 01/07/25 02/28/25 Rx metformin 500 mg tablet 1,000 mg (2 x 500 mg) PO BID #360 02/18/25 02/28/25 Rx tabs dicyclomine 20 mg tablet 20 mg PO ONCE PRN abdominal pain 02/21/25 02/21/25 History famotidine 20 mg tablet 20 mg PO DAILY 02/21/25 02/28/25 History Laboratory Tests 02/28/25 08:47 POC Capillary Glucose 154 H mg/dl (65-105) Patient hx anesthesia problems: none Family hx anesthesia problems: none Results Review: All pre-operative results and documents have been reviewed as part of the pre- operative evaluation. FORMERLY [facility], [facility] Past Medical History Medical History Thyroid disorder GERD (gastroesophageal reflux disease) Tonsillectomy planned Diabetes Allergies Surgical History Surgical History History of tonsillectomy Hx of cholecystectomy Hx of appendectomy Hx of elbow surgery Family History Family History Father Lung cancer Other Ovarian cancer Mother Alzheimer disease Social History Social History Smoking packs per day: 1.5 Smoking cigarettes per day: 30.0 Years smoked: 15 Smoking pack-years: 22.50 Smoking status: Former smoker Tobacco type: cigarettes Second hand tobacco smoke exposure: No Smoking end date: 10/09/84 Alcohol intake: current Drinks per week: 2 Alcohol use details: social Substance use: never Substance use type: does not use Living arrangements: with family Occupation/Education: retired Gender identity (if verbalized by the patient): Female Sexual Orientation (if Verbalized by the Patient): Straight or Heterosexual Spiritual care concerns: No Anes - Eval Final PreProcedure Day of Procedure 02/28/25 09:51 Patient weight: normal Heart: regular rate and rhythm Lungs: clear to auscultation Airway: Mallampati scale class II Neurological: alert and oriented Last oral intake: >/= 8 hours ASA classification: III Emergent: no Anesthetic plan: proceed Anesthesia type and monitoring: general GIVS and standard monitoring Results Review: All pre-operative results and documents have been reviewed as part of the pre- operative evaluation. Informed Consent: The patient's anesthetic plan and its attendant risks and benefits were discussed with the patient/family/POA. Questions were solicited and answers provided to the satisfaction of the patient/family/POA.
--- NOTE | 2025-02-28 10:02 | PM.IMHP ---
H&P: HPI History of Present Illness Date/Time: 02/28/25 10:02 Chief Complaint: Patient is status post cholecystectomy in 2018 approximately, starting to have chronic diarrhea, since December this year. She has an average of 4-6 episodes per day, nonbloody, not associated with abdominal pain or weight loss. He is referred for colonoscopy. Her last colonoscopy was 10 years ago. Review of Systems Review of Systems: All systems reviewed & are unremarkable except as noted in HPI and below PMFSH Past Medical History Medical History Thyroid disorder GERD (gastroesophageal reflux disease) Tonsillectomy planned Diabetes Allergies Surgical History Surgical History History of tonsillectomy Hx of cholecystectomy Hx of appendectomy Hx of elbow surgery Family History Family History Father Lung cancer Other Ovarian cancer Mother Alzheimer disease Social History Social History Smoking packs per day: 1.5 Smoking cigarettes per day: 30.0 Years smoked: 15 Smoking pack-years: 22.50 Smoking status: Former smoker Tobacco type: cigarettes Second hand tobacco smoke exposure: No Smoking end date: 10/09/84 Alcohol intake: current Drinks per week: 2 Alcohol use details: social Substance use: never Substance use type: does not use Living arrangements: with family Occupation/Education: retired Gender identity (if verbalized by the patient): Female Sexual Orientation (if Verbalized by the Patient): Straight or Heterosexual Spiritual care concerns: No Meds Home Medications and Allergies Home Medications ?Medication ?Instructions ?Recorded ?Confirmed ?Type cholecalciferol (vitamin D3) 50 50 mcg PO DAILY 05/04/22 02/28/25 History mcg (2,000 unit) capsule cyanocobalamin (vitamin B-12) 1,000 mcg PO DAILY 05/04/22 02/28/25 History 1,000 mcg capsule calcium polycarbophil 625 mg 1,250 mg PO BID 05/10/22 02/28/25 History tablet (FiberCon) lansoprazole 30 mg capsule,delayed 30 mg PO DAILY #90 caps 10/04/24 02/28/25 Rx release atorvastatin 20 mg tablet 20 mg PO DAILY #90 tabs 11/01/24 02/28/25 Rx levothyroxine 75 mcg tablet 75 mcg PO DAILY #90 tabs 01/07/25 02/28/25 Rx metformin 500 mg tablet 1,000 mg (2 x 500 mg) PO BID #360 02/18/25 02/28/25 Rx tabs dicyclomine 20 mg tablet 20 mg PO ONCE PRN abdominal pain 02/21/25 02/21/25 History famotidine 20 mg tablet 20 mg PO DAILY 02/21/25 02/28/25 History Allergies Allergy/AdvReac Type Severity Reaction Status Date / Time hydrocodone Allergy Severe NAUSEA Verified 02/28/25 08:39 VOMITING Sulfa (Sulfonamide Allergy Mild HIVES Verified 02/28/25 08:39 Antibiotics) amoxicillin AdvReac unknown Verified 02/28/25 08:39 Vital Signs Vital Signs - 24 hr 02/28/25 08:42 Temperature 97.4 F L Pulse Rate 90 Respiratory Rate 16 Blood Pressure 151/69 H Pulse Oximetry 98 Oxygen Delivery Room Air Exam Const: General: cooperative and healthy appearing Resp: Effort & Inspection: normal respiratory effort and able to speak in complete sentences Auscultation: clear to auscultation bilaterally Cardio: Rate: regular rate Rhythm: regular rhythm GI: Inspection: normal to inspection GI Palp: No No hepatosplenomegaly present Auscultation: normal bowel sounds Rectal Exam: deferred Skin: General skin exam: normal color Psych: Appearance: grossly normal Mental Status: mental status grossly normal Assessment and Plan Assessment and plan (1) Diarrhea, unspecified: Code(s): R19.7 - Diarrhea, unspecified Status: Acute Assessment and Plan: The patient is deemed a good candidate for the procedure. Consent signed. Will proceed.
[2025-02-28] MEDS: SIMETHICONE ORAL SUSPENSION 20 MG/0.3 ML 30 ML BOTTLE 0.6 ML IRRIGATION (10:17)
[2025-02-28 10:31] VITALS: BP 145/73; PULSE 78; RESP 18; O2SAT 98
[2025-02-28 10:41] VITALS: BP 135/64; PULSE 60; RESP 25; O2SAT 98
[2025-02-28 10:51] VITALS: BP 126/73; PULSE 73; RESP 22; O2SAT 100
== END 2025-02-28 11:18 | disposition home or self-care (01) ==
PROVIDERS: Referring Provider Nurse Practitioner; Visit Provider Internal Medicine Gastroenterology
PROC: 0DJD8ZZ Inspection of Lower Intestinal Tract, Via Natural or Artificial Opening Endoscopic (ICD-10-PCS; CPT 45378; principal; 2025-02-28 10:00)
DX: Z12.11 Encounter for screening for malignant neoplasm of colon (principal); K21.9 Gastro-esophageal reflux disease without esophagitis; E11.9 Type 2 diabetes mellitus without complications; E07.9 Disorder of thyroid, unspecified; Z79.84 Long term (current) use of oral hypoglycemic drugs; Z98.890 Other specified postprocedural states; Z90.49 Acquired absence of other specified parts of digestive tract; Z87.891 Personal history of nicotine dependence; Z80.1 Family history of malignant neoplasm of trachea, bronchus and lung; Z80.41 Family history of malignant neoplasm of ovary
CPT/HCPCS: G0105; 82948; 88305; J2704; J7120